=== PATIENT | male | born 1990 | race Caucasian/White ===

== ENCOUNTER 2021-04-28 13:55 | Emergency (ER) | payer OTHER ==
[~2021-04-28 13:55] MED LIST: PENVEE K 500 M500 MG PO; TORADOL 10 MG T10 MG PO
== END 2021-04-28 15:09 | disposition home or self-care (01) ==
LOC: ER1 13:55
DX: M25.552 Pain in left hip (principal); R09.89 Other specified symptoms and signs involving the circulatory and respiratory systems; F17.200 Nicotine dependence, unspecified, uncomplicated
CPT/HCPCS: 71045; 72170; 99283